=== PATIENT | male | born 2000 | race Caucasian/White ===

== ENCOUNTER 2022-02-11 23:21 | Emergency (ER) | payer OTHER ==
[2022-02-11 23:26] VITALS: BP_SYST 156
--- NOTE | 2022-02-11 23:30 | NUR ---
Written and verbal consent obtained from patient for blood alcohol, name and verified by patient. Disinfected patient's skin with Iodine that did not contain alcohol or other volatile organic compound. Collected the blood from the subject named by venipuncture, in the presence of Officer Zoie #[id number]. Used a sterile, dry hypodermic needle and dry vacuum blood collection. Two dry vacuum blood collection was supplied by the officer named above. Withdrew a specimen of blood from Left upper arm of the subject named above. Inverted both blood tubes several times to ensure that the preservative and anticoagulant were thoroughly mixed in the blood specimen. I initialed both blood tube labels for identification. The labeled blood tubes were handed directly to the Officer named above. The blood tubes stopper remained in place while I had possession of the blood tubes. The Officer placed tubes into envelope and sealed it in my presence. Envelope initialed by myself and Officer named above. Patient tolerated well, bandage applied, and bleeding controlled. Addendum: 02/11/22 at 2336 by [id number] JOSE Cotton
== END 2022-02-11 23:30 ==
LOC: SED 23:21
DX: Z02.83 Encounter for blood-alcohol and blood-drug test (principal)